=== PATIENT | female | born 1995 | race Hispanic/Latino ===

== ENCOUNTER 2021-12-15 17:14 | Observation (INO) | payer MEDICAID ==
[~2021-12-15] VITALS: Ht 170.2 cm; Wt 62.6 kg
[2021-12-15 17:16] VITALS: BP 135/58
== END 2021-12-15 19:13 | disposition home or self-care (01) ==
LOC: EDH 17:14 → LDH 17:15
PROVIDERS: ADMIT Obstetrics & Gynecology; ATTEND Obstetrics & Gynecology
DX: O46.92 Antepartum hemorrhage, unspecified, second trimester (principal); Z3A.20 20 weeks gestation of pregnancy
CPT/HCPCS: G0378 ×2; G0379